=== PATIENT | female | born 1930 | race Two or more races ===

== ENCOUNTER 2018-10-29 16:41 | Emergency (ER) | payer OTHER ==
[~2018-10-29] VITALS: Ht 157.5 cm; Wt 61.7 kg
[2018-10-29] MEDS ORDERED: MORPHINE SULFATE INJ 4 MG/ML DISP.SYRIN ONE (17:12)
[2018-10-29] MEDS ORDERED: ONDANSETRON HCL/PF 4 MG/2 ML VIAL ONE (17:20)
[2018-10-29] MEDS ORDERED: ONDANSETRON HCL/PF 4 MG/2 ML VIAL IVP ONE (17:30)
[2018-10-29] MEDS ORDERED: MORPHINE SULFATE INJ 2 MG/ML DISP.SYRIN IV ONE ×2 (17:30→20:00)
[2018-10-29 17:38] LABS: BASOPHILS % (AUTO) 0.2 % (0.0-2.0); HEMATOCRIT 35 % (33-45); HEMOGLOBIN 11.4 g/dL (11.5-14.8); LYMPHOCYTES # (AUTO) 1.2 /CMM (0.8-4.8); LYMPHOCYTES % (AUTO) 6.3 % (20.0-44.0); MEAN CORPUSCULAR HGB CONC 32 g/dl (31.0-36.0); MEAN CORPUSCULAR VOLUME 88 fL (82-100); MONOCYTES % (AUTO) 5.4 % (2.0-12.0); NEUTROPHILS % (AUTO) 88.1 % (43.0-81.0); PLATELET COUNT (AUTO) 238 /CMM (150-450); RED BLOOD CELL COUNT(AUTO) 4.03 MIL/uL (4.0-5.2); WHITE BLOOD COUNT (AUTO) 18.2 K/uL (4.3-11.0)
[2018-10-29 17:45] LABS: POTASSIUM 4.7 mmol/L (3.5-5.1); SODIUM SERUM 142 mmol/L (136-145)
--- NOTE | 2018-10-29 17:45 | NUR ---
patient presented to the ER c/o of hip pain s/p GLF. On room air, breathing evenly and unlabored. connected to the monitor and pulse ox. Kept comfortable, will continue to monitor accordingly.
[2018-10-29 17:46] LABS: CARBON DIOXIDE 28 mmol/L (21-32); CHLORIDE 106 mmol/L (98-107); CREATININE 1.1 mg/dL (0.6-1.3); GLUCOSE 139 mg/dL (74-106); UREA NITROGEN, BLOOD 46 mg/dL (7-18)
[2018-10-29 17:51] LABS: ALANINE AMINOTRANSFERASE 22 U/L (12-78); ALBUMIN 3.5 g/dL (3.4-5.0); ALKALINE PHOSPHATASE 101 U/L (46-116); ASPARTATE AMINOTRANSFERASE 18 U/L (15-37); BILIRUBIN,DIRECT 0.2 mg/dL (0.0-0.2); BILIRUBIN,TOTAL 0.7 mg/dL (0.2-1.0); TOTAL PROTEIN, SERUM 6.8 g/dL (6.4-8.2)
[2018-10-29 18:28] LABS: APPEARANCE,URINE Clear (CLEAR); BILIRUBIN,URINE Negative (NEGATIVE); BLOOD, URINE Trace-intact Ery/uL (NEGATIVE); COLOR,URINE Yellow (YELLOW); KETONES,URINE Negative (NEGATIVE); LEUKOCYTE ESTERASE ,URINE Negative (NEGATIVE); NITRITE, URINE Positive (NEGATIVE); PROTEIN,URINE Negative (NEGATIVE); UGLUCOSE Negative (NEGATIVE); UROBILINOGEN,URINE 0.2 EU/dL (0.2)
--- NOTE | 2018-10-29 18:34 | NUR ---
CALLED [facility], PRESENTED PT, AWAITING CALL BACK FROM [facility]
[2018-10-29 18:48] LABS: BACTERIA,URINE Many /HPF (None Seen); RBC,URINE 2-3/HPF /HPF (0-2)
[2018-10-29 18:49] LABS: SQUAMOUS EPITHELIAL CELL,UR Few /HPF (None Seen); URINE AMORPHOUS URATE Few /HPF (None Seen)
--- NOTE | 2018-10-29 18:50 | NUR ---
DR. VALDES ON PHONE WITH [place]
[2018-10-29] MEDS ORDERED: IV NS 0.9% 1,000 ML BAG IV ONE (19:00)
[2018-10-29] MEDS ORDERED: CEFTRIAXONE 1GM BAG (ER ONLY) 50 ML IV ONE (19:12)
--- NOTE | 2018-10-29 19:21 | NUR ---
RECEIVED REPORT FROM [facility] M[facility]JIVAR FOR [facility]. PT RESTING IN BED WITH SIDE RAILS UP X2. NO S/S OF ACUTE DISTRESS NOTED. PT'S FAMILY MEMBER BEDSIDE WITH PT. PT ON MONITOR AND POX. WILL CONTINUE TO MONITOR PT FOR COMFORT AND SAFETY.
[2018-10-29] MEDS ORDERED: CEFTRIAXONE 1 G in IV D5W 50 ML IV ONE (19:30)
--- NOTE | 2018-10-29 19:35 | NUR ---
RECEIVED CALL FROM [facility], PT ACCEPTED TO [facility] BY , NUMBER TO GIVE REPORT IS [phone], [facility] SHOULD ARRIVE WITHIN THE HOUR.
[2018-10-29] MEDS ORDERED: MORPHINE SULFATE INJ 2 MG/ML DISP.SYRIN ONE (19:47)
--- NOTE | 2018-10-29 19:59 | NUR ---
PT'S 20G IV ON THE R WRIST NOTED TO BE INFILTRATED. IV DC'ED WITH TIP INTACT AND 2X2 DRESSING APPLIED WITH NO S/S OF BLEEDING NOTED. NEW 18G IV STARTED ON R AC. IV FLUSHES WITH NO S/S OF INFILTRATE OR PAIN.
--- NOTE | 2018-10-29 20:31 | NUR ---
REPORT GIVEN TO [facility] FOR [facility].
--- NOTE | 2018-10-29 20:35 | NUR ---
Patient Tranfers to outside Facility Physician:, RN: REPORT GIVEN TO [employer] ABRAHAM FOR GR[facility] Location:[facility] ER
[2018-10-29 20:36] VITALS: BP 146/57
== END 2018-10-29 20:39 | disposition short-term general hospital (02) ==
LOC: ER 16:43
DX: S72.142A Displaced intertrochanteric fracture of left femur, initial encounter for closed fracture (principal); N39.0 Urinary tract infection, site not specified; I10 Essential (primary) hypertension; Z85.3 Personal history of malignant neoplasm of breast; Z90.10 Acquired absence of unspecified breast and nipple; Z60.2 Problems related to living alone; W01.0XXA Fall on same level from slipping, tripping and stumbling without subsequent striking against object, initial encounter; Y93.89 Activity, other specified; Y92.89 Other specified places as the place of occurrence of the external cause; Y99.8 Other external cause status
CPT/HCPCS: 36415; 51702; 71045; 73503; 80048; 80076; 81001; 83605; 84484; 85025; 85730; 86850; 87040 ×2; 87077; 87086; 87186; 93005; 96365; 96375; 96376; 99285; A4606; J0696; J2270 ×2; J2405; J7030; 73502; 81000-TC; J7060